=== PATIENT | female | born 1965 | race Caucasian/White ===

== ENCOUNTER 2016-05-24 17:12 | Emergency (ER) | payer OTHER ==
[~2016-05-24] VITALS: Wt 90.0 kg
[2016-05-24] MEDS ORDERED: HYDROCODONE/APAP (5/325) TAB PO ONE (18:30)
[2016-05-24] MEDS ORDERED: IBUPROFEN 600 MG TAB PO ONE (18:30)
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
--- NOTE | 2016-05-24 20:27 | RADRPT ---
PROCEDURE: XR cervical spine CLINICAL INDICATION: Neck pain TECHNIQUE: 3 standard radiographs were obtained of the cervical spine. COMPARISON: None FINDINGS: Alignment: There is reversal of the normal lordotic curvature to the cervical spine without subluxat ion. The atlantoaxial relationship appears normal Disk spaces: There is slight relative loss of disk height at C5-6 and C6-C7. Osseous structures : appear intact with no fracture or destructive process identified. There is mild anterior spondylosis seen to involve the endplates at C5-6 and C6-C7 and minimal posterior spondylo sis at these levels. Soft tissues: are unremarkable. IMPRESSION: 1. Reversal of the normal lordotic curvature 2. Degenerative disk and endplate changes primarily seen at C5-6 and C6-C7. Physician John Date Time Electronically viewed and signed by Physician John on 05/24/2016 20:27 /
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
--- NOTE | 2016-05-24 20:29 | RADRPT ---
PROCEDURE: XR Right Wrist with Navicular View CLINICAL INDICATION: Pain TECHNIQUE: AP, lateral, and oblique views as well as a carpal navicular view were submitted. COMPARISON: None FINDINGS: Osseous structures: appear well mineralized and intact with no fracture or destructive process iden tified. Joint spaces: are well maintained with no significant erosions or spurring identified. Soft tissues: appear unremarkable. IMPRESSION: Unremarkable right wrist with navicular view. Physician John Date Time Electronically viewed and signed by Yeny Reeder Physician on 05/24/2016 20:29 RH/
[2016-05-24] MEDS ORDERED: ORPH100T PO (20:59)
[2016-05-24] MEDS ORDERED: IBUP-1542 PO (20:59)
[2016-05-24] MEDS ORDERED: HYDR-906 PO (20:59)
== END 2016-05-24 21:19 | disposition home or self-care (01) ==
LOC: FTE 17:12
DX: S19.9XXA Unspecified injury of neck, initial encounter (principal); S29.9XXA Unspecified injury of thorax, initial encounter; S69.91XA Unspecified injury of right wrist, hand and finger(s), initial encounter; S89.91XA Unspecified injury of right lower leg, initial encounter; S89.92XA Unspecified injury of left lower leg, initial encounter; R07.89 Other chest pain; V43.52XA Car driver injured in collision with other type car in traffic accident, initial encounter
CPT/HCPCS: 71020; 72040; 72072; 73030; 73080; 73110; 93005; Z7610